=== PATIENT | male | born 1970 | race African-American/Black ===

== ENCOUNTER 2016-08-21 15:32 | Inpatient (IN) | payer OTHER ==
[2016-08-21 17:14] VITALS: BMI 24.4
--- NOTE | 2016-08-21 18:50 | HP ---
CIWA Score - CIWA Score Nausea/Vomitin-Mild Nausea/No Vomiting Muscle Tremors: 4-Moderate,w/Arms Extend Anxiety: 4-Mod. Anxious/Guarded Agitation: 4-Moderately Restless Paroxysmal Sweats: 1-Minimal Palms Moist Orientation: 3-Disoriented Date>2 days Tacttile Disturbances: 0-None Auditory Disturbances: 0-None Visual Disturbances: 0-None Headache: 1-Very Mild CIWA-Ar Total Score: 18 Admission ROS S - HPI Chief Complaint: withdrawal sx Allergies/Adverse Reactions: Allergies Allergy/AdvReac Type Severity Reaction Status Date / Time No Known Allergies Allergy Verified 07/01/16 16:48 History of Present Illness: 46 years old male with long history of alcohol nicotine dependence, denies medical issue has schizophrenia is admitted to detox Exam Limitations: No Limitations - Ebola screening Have you traveled outside of the country in the last 21 days: No (N) Have you had contact with anyone from an Ebola affected area: No Have you been sick,other than usual withdrawal symptoms: No Do you have a fever: No - Review of Systems Constitutional: Chills, Changes in sleep, Weight Stable EENT: reports: No Symptoms Reported Respiratory: reports: No Symptoms reported Cardiac: reports: No Symptoms Reported GI: reports: Nausea, Poor Fluid Intake, Abdominal cramping : reports: No Symptoms Reported Musculoskeletal: reports: No Symptoms Reported Integumentary: reports: No Symptoms Reported Neuro: reports: Tremors Endocrine: reports: No Symptoms Reported Hematology: reports: No Symptoms Reported Psychiatric: reports: Judgement Intact, Anxious, Depressed Other Systems: Reviewed and Negative Patient History - Patient Medical History Hx Anemia: No Hx Asthma: No Hx Chronic Obstructive Pulmonary Disease (COPD): No Hx Cancer: No Hx Cardiac Disorders: No Hx Congestive Heart Failure: No Hx Hypertension: No Hx Hypercholesterolemia: No Hx Pacemaker: No HX Cerebrovascular Accident: No Hx Seizures: No Hx Dementia: No Hx Diabetes: No Hx Gastrointestinal Disorders: No Hx Liver Disease: No Hx Genitourinary Disorders: No Hx Sexually Transmitted Disorders: No Hx Renal Disease (ESRD): No Hx Thyroid Disease: No Hx Human Immunodeficiency Virus (HIV): No Hx Hepatitis C: No Hx Depression: No Hx Suicide Attempt: Yes (CUT WRIST 2013) Hx Bipolar Disorder: No Hx Schizophrenia: Yes (schizoaffectiv edisorder) - Patient Surgical History Past Surgical History: No Hx Neurologic Surgery: No Hx Cataract Extraction: No Hx Cardiac Surgery: No Hx Lung Surgery: No Hx Breast Surgery: No Hx Breast Biopsy: No Hx Abdominal Surgery: No Hx Appendectomy: No Hx Cholecystectomy: No Hx Genitourinary Surgery: No Hx Orthopedic Surgery: No Anesthesia Reaction: No - PPD History Previous Implant?: Yes Documented Results: Negative w/proof Implanted On Prior R Admission?: Yes Date: 07/04/16 PPD to be Administered?: No - Smoking Cessation Smoking history: Current every day smoker Have you smoked in the past 12 months: Yes Aproximately how many cigarettes per day: 4 Hx Chewing Tobacco Use: No Initiated information on smoking cessation: Yes 'Breaking Loose' booklet given: 08/21/16 - Substance & Tx. History Hx Alcohol Use: Yes Hx Substance Use: No Substance Use Type: Alcohol, Marijuana Hx Substance Use Treatment: Yes - Substances Abused Alcohol Route: Oral Frequency: Daily Age of first use: 7 Date of Last Use: 08/21/16 Family Disease History - Family Disease History Family Disease History: Heart Disease: Grandparent (HTN), Other: Father ( ALCOHOLIC) Admission Physical Exam BHS - Vital Signs Vital Signs: Vital Signs - 24 hr 08/21/16 17:08 Temperature 98.0 F Pulse Rate 89 Respiratory 20 Rate Blood Pressure 137/84 - Physical General Appearance: Yes: Appropriately Dressed, Mild Distress, Thin, Tremorous, Irritable, Sweating, Anxious HEENTM: Yes: Hearing grossly Normal, Normal ENT Inspection, Normocephalic, Normal Voice Respiratory: Yes: Chest Non-Tender, Lungs Clear, Normal Breath Sounds, No Respiratory Distress, No Accessory Muscle Use Neck: Yes: Supple, Trachea in good position Breast: Yes: Breasts Symetrical Cardiology: Yes: Regular Rhythm, Regular Rate, S1, S2 Abdominal: Yes: Non Tender, Soft Genitourinary: Yes: Within Normal Limits Back: Yes: Normal Inspection Musculoskeletal: Yes: full range of Motion, Gait Steady Extremities: Yes: Normal Range of Motion, Non-Tender, Tremors Neurological: Yes: Alert, Motor Strength 5/5, Normal Response Integumentary: Yes: Warm Lymphatic: Yes: Within Normal Limits - Diagnostic (1) Alcohol dependence with uncomplicated withdrawal Current Visit: Yes Status: Acute (2) Schizoaffective disorder Current Visit: Yes Status: Suspected Qualifiers: Schizoaffective disorder type: bipolar Qualified Code(s): F25.0 - Schizoaffective disorder, bipolar type (3) Nicotine dependence Current Visit: Yes Status: Acute Qualifiers: Nicotine product type: cigarettes Substance use status: in withdrawal Qualified Code(s): F17.213 - Nicotine dependence, cigarettes, with withdrawal Cleared for Admission S - Detox or Rehab [facility] Level of Care: Medically Managed Detox Regimen/Protocol: Librium S Breath Alcohol Content Breath Alcohol Content: 0.024 Urine Drug Screen - Results Drug Screen Negative: No Urine Drug Screen Results: THC-Marijuana
[2016-08-21] MEDS ORDERED: MAG HYDROX/AL HYDROX/SIMETH 30 ML UNIT-DOSE CUP PO PRN (18:52)
[2016-08-21] MEDS ORDERED: IBUPROFEN 400 MG TABLET (FP) PO PRN (18:52)
[2016-08-21] MEDS ORDERED: LOPERAMIDE HCL 2 MG CAPSULE PO PRN (18:52)
[2016-08-21] MEDS ORDERED: chlordiazePOXIDE HCL 25 MG CAPSULE PO PRN (18:52)
[2016-08-21] MEDS ORDERED: ACETAMINOPHEN 325 MG TABLET (FP) PO PRN (18:52)
[2016-08-21] MEDS ORDERED: guaiFENesin/D-METHORPHAN HB 10 ML UNIT-DOSE CUPS PO PRN (18:52)
[2016-08-21] MEDS ORDERED: MAGNESIUM HYDROX 2400MG/30ML ORAL SUSPENSION 30 ML CUP PO PRN (18:52)
[2016-08-21] MEDS ORDERED: diphenhydrAMINE HCL 50 MG CAPSULE PO PRN (18:52)
[2016-08-21] MEDS ORDERED: P-EPHED 60MG/TRIPROLIDI 2.5MG TABLET PO PRN (18:52)
[2016-08-21] MEDS ORDERED: MENTHOL/PHENOL 1 EACH UD MM PRN (18:52)
[2016-08-21] MEDS ORDERED: MAGNESIUM CITRATE 300 ML BOTTLE PO PRN (18:52)
[2016-08-21] MEDS ORDERED: hydrOXYzine PAMOATE 50 MG CAPSULE (FP) PO PRN (18:57)
[2016-08-21] MEDS ORDERED: NICOTINE POLACRILEX 2 MG GUM BUC PRN (18:57)
[2016-08-21] MEDS ORDERED: chlordiazePOXIDE HCL 25 MG CAPSULE PO ONE (19:45)
[2016-08-21] MEDS: chlordiazePOXIDE HCL 25 MG CAPSULE PO SCH (22:15)
[2016-08-21] MEDS: THIAMINE HCL 100 MG TABLET (FP) PO SCH (22:15)
[2016-08-22 01:18] LABS: URINE APPEARANCE CLEAR; URINE BILIRUBIN NEGATIVE (NEGATIVE); URINE BLOOD NEGATIVE (NEGATIVE); URINE COLOR YELLOW; URINE GLUCOSE (UA) NEGATIVE (NEGATIVE); URINE KETONE TRACE (NEGATIVE); URINE LEUK ESTERASE NEGATIVE (NEGATIVE); URINE NITRITE NEGATIVE (NEGATIVE); URINE PROTEIN NEGATIVE (NEGATIVE); URINE UROBILINOGEN 4.0 E.U/dl E.U./dl (0.2-1.0)
[2016-08-22] MEDS: chlordiazePOXIDE HCL 25 MG CAPSULE PO SCH ×4 (06:03→22:43)
--- NOTE | 2016-08-22 09:31 | EKG ---
Test Reason : Blood Pressure : / mmHG Vent. Rate : 088 BPM Atrial Rate : 088 BPM P-R Int : 146 ms QRS Dur : 084 ms QT Int : 380 ms P-R-T Axes : 068 058 063 degrees QTc Int : 459 ms NORMAL SINUS RHYTHM NORMAL ECG NO PREVIOUS ECGS AVAILABLE Confirmed by WILLY SILVA MD ([id number]) on 08/22/2016 9:30:55 AM Referred By: Isra Nam Confirmed By:WILLY SILVA MD
[2016-08-22 10:30] LABS: MCH 33.2 pg (25.7-33.7); MCHC 33.6 g/dl (32.0-35.9); MEAN CELL VOLUME 98.9 fl (80-96); MEAN PLT VOLUME 9.9 fl (7.5-11.1); PLATELET COUNT 164 K/MM3 (134-434); RDW 13.9 % (11.9-15.9); WHITE BLOOD COUNT 5.8 K/mm3 (4.0-10.0)
[2016-08-22] MEDS: PRENATAL VITAMINS W/ FOLIC ACID TABLET (FP) PO SCH (10:35)
[2016-08-22] MEDS: NICOTINE 14 MG/24 HOURS TOPICAL PATCH TD SCH (10:36)
--- NOTE | 2016-08-22 10:55 | PN ---
S CIWA - CIWA Score Nausea/Vomitin Muscle Tremors: 4-Moderate,w/Arms Extend Anxiety: 4-Mod. Anxious/Guarded Agitation: 4-Moderately Restless Paroxysmal Sweats: 3 Orientation: 0-Oriented Tacttile Disturbances: 1-Very Mild Itch/Numbness Auditory Disturbances: 0-None Visual Disturbances: 0-None Headache: 1-Very Mild CIWA-Ar Total Score: 20 BHS Progress Note (SOAP) Subjective: nausea, sweats, interrupted sleep, anxiety, tremor Objective: 08/22/16 10:54 Vital Signs - 8 hr 08/22/16 08/22/16 08/22/16 03:30 06:00 10:22 Temperature 97.3 F L 97.7 F Pulse Rate 67 84 Respiratory 18 18 18 Rate Blood Pressure 131/78 124/76 Laboratory Tests 08/22/16 08/22/16 00:45 07:40 WBC 5.8 RBC 4.65 Hgb 15.4 Hct 46.0 MCV 98.9 H MCHC 33.6 RDW 13.9 Plt Count 164 MPV 9.9 Urine Color Yellow Urine Appearance Clear Urine pH 6.0 Ur Specific [place] 1.027 Urine Protein Negative Urine Glucose (UA) Negative Urine Ketones Trace H Urine Blood Negative Urine Nitrite Negative Urine Bilirubin Negative Urine Urobilinogen 4.0 e.u/dl Ur Leukocyte Esterase Negative labs still pending Assessment: 08/22/16 10:55 smita marsh Plan: cont detox
[2016-08-22 12:08] LABS: ALBUMIN 3.4 g/dl (3.4-5.0); ALK PHOS 48 U/L (45-117); ANION GAP 11 (8-16); BILIRUBIN,TOTAL 0.7 mg/dL (0.2-1.0); CALCIUM 8.8 mg/dL (8.5-10.1); CO2 29 mmol/L (21-32); CREATININE 0.8 mg/dL (0.7-1.3); GLUCOSE,RANDOM 73 mg/dL (74-106); SGOT/AST 20 U/L (15-37); SGPT/ALT 19 U/L (12-78)
--- NOTE | 2016-08-22 12:19 | CONSULT ---
[facility] Psychiatric Consult - Data Date of interview: 08/22/16 Admission source: [facility] Identifying data: Readmission to [facility] for this 46 y/o AA male seeking detox treatment on for alcohol and cocaine dependence.Patient is single, a father of four,domiciled,unemployed and suppoted on [employer] benefits. Substance Abuse History: - Smoking Cessation. Smoking history: Current every day smoker. Have you smoked in the past 12 months: Yes. Aproximately how many cigarettes per day: 4. Hx Chewing Tobacco Use: No. Initiated information on smoking cessation: Yes. 'Breaking Loose' booklet given: 08/21/16. - Substance & Tx. History. Hx Alcohol Use: Yes. Hx Substance Use: No. Substance Use Type : Alcohol, Marijuana. Hx Substance Use Treatment: Yes. - Substances Abused. * * Alcohol. Route: Oral. Frequency: Daily. Age of first use: 7. Date of Last Use: 08/21/16. Discussed with the patient in this interview.He confirmed this pattern of substance use. Medical History: Patient endorses good general health. Psychiatric History: Diagnosed with Schizoaffective Disorder (age 22).Patient is already known to this chief underwriter.No history of psychiatric hospitalizations.Mr Belle reports being on risperdal 2 mg po bid + depakote 500 mg po bid + buspar (dose not recalled).Followed at the [facility] in the [place].Chronic insomnia is reported by the patient.No history of suicide attempts. Physical/Sexual Abuse/Trauma History: Patient denies. Additional Comment: Urine Drug Screen Results: THC-Marijuana.Noted. Mental Status Exam - Mental Status Exam Alert and Oriented to: Time, Place, Person Cognitive Function: Good Patient Appearance: Well Groomed Mood: Hopeful, Euthymic Affect: Appropriate, Normal Range Patient Behavior: Fatigued, Talkative, Appropriate, Cooperative Speech Pattern: Clear, Appropriate Voice Loudness: Normal Thought Process: Goal Oriented Thought Disorder: Not Present Hallucinations: Denies Suicidal Ideation: Denies Homicidal Ideation: Denies Insight/Judgement: Poor Sleep: Poorly, Difficulty falling asleep Appetite: Good Muscle strength/Tone: Normal Gait/Station: Normal Psychiatric Findings - Problem List ([place] 1, 2,3) (1) Alcohol dependence with uncomplicated withdrawal Current Visit: Yes Status: Acute (2) Nicotine dependence Current Visit: Yes Status: Acute Qualifiers: Nicotine product type: cigarettes Substance use status: in withdrawal Qualified Code(s): F17.213 - Nicotine dependence, cigarettes, with withdrawal (3) Schizoaffective disorder Current Visit: Yes Status: Chronic Qualifiers: Schizoaffective disorder type: bipolar Qualified Code(s): F25.0 - Schizoaffective disorder, bipolar type Comment: Self-report. (4) Cannabis dependence, uncomplicated Current Visit: No Status: Acute - Initial Treatment Plan Initial Treatment Plan: Psychoeducation.Detoxification.Medications :risperdal 2 mg po bid + depakote 500 mg po bid + buspar 15 mg po bid (verified through review of pharmacy claims of 08/19/16 @ [facility]).Side effects/ benefits discussed with the patient.He agrees with this careplan.Valproic acid level :pending.Observation.No scripts necessary at discharge (refills already available at home).
[2016-08-22] MEDS: ZOLPIDEM TARTRATE 5 MG TABLET PO PRN (22:43)
[2016-08-22] MEDS: THIAMINE HCL 100 MG TABLET (FP) PO SCH (22:44)
[2016-08-22] MEDS: DIVALPROEX SODIUM 500 MG TABLET E.C. PO SCH (22:44)
[2016-08-22] MEDS: risperiDONE 2 MG TABLET PO SCH (22:44)
[2016-08-23] MEDS: chlordiazePOXIDE HCL 25 MG CAPSULE PO SCH ×3 (06:00→17:26)
[2016-08-23] MEDS: PRENATAL VITAMINS W/ FOLIC ACID TABLET (FP) PO SCH (10:57)
[2016-08-23] MEDS: DIVALPROEX SODIUM 500 MG TABLET E.C. PO SCH ×2 (10:58→22:03)
[2016-08-23] MEDS: risperiDONE 2 MG TABLET PO SCH ×2 (10:58→22:03)
[2016-08-23] MEDS: NICOTINE 14 MG/24 HOURS TOPICAL PATCH TD SCH (10:58)
--- NOTE | 2016-08-23 13:43 | PN ---
[facility] CIWA - CIWA Score Nausea/Vomitin-No Nausea/No Vomiting Muscle Tremors: 3 Anxiety: 4-Mod. Anxious/Guarded Agitation: 3 Paroxysmal Sweats: 3 Orientation: 0-Oriented Tacttile Disturbances: 0-None Auditory Disturbances: 0-None Visual Disturbances: 0-None Headache: 0-None Present CIWA-Ar Total Score: 13 S Progress Note (SOAP) Subjective: anxiety,tremors,sweating,interrupted sleep,restless. Objective: 08/23/16 13:42 Vital Signs - 8 hr 08/23/16 08/23/16 06:00 10:00 Temperature 98.1 F 98.6 F Pulse Rate 74 84 Respiratory 18 20 Rate Blood Pressure 110/68 116/77 Laboratory Last Values WBC 5.8 K/mm3 (4.0-10.0) 08/22/16 07:40 RBC 4.65 M/mm3 (4.00-5.60) 08/22/16 07:40 Hgb 15.4 GM/dL (11.7-16.9) 08/22/16 07:40 Hct 46.0 % (35.4-49) 08/22/16 07:40 MCV 98.9 fl (80-96) H 08/22/16 07:40 MCHC 33.6 g/dl (32.0-35.9) 08/22/16 07:40 RDW 13.9 % (11.9-15.9) 08/22/16 07:40 Plt Count 164 K/MM3 (134-434) 08/22/16 07:40 MPV 9.9 fl (7.5-11.1) 08/22/16 07:40 Sodium 142 mmol/L (136-145) 08/22/16 07:40 Potassium 3.6 mmol/L (3.5-5.1) 08/22/16 07:40 Chloride 102 mmol/L (98-107) 08/22/16 07:40 Carbon Dioxide 29 mmol/L (21-32) 08/22/16 07:40 Anion Gap 11 (8-16) 08/22/16 07:40 BUN 9 mg/dL (7-18) D 08/22/16 07:40 Creatinine 0.8 mg/dL (0.7-1.3) 08/22/16 07:40 Creat Clearance w eGFR > 60 (>60) 08/22/16 07:40 Random Glucose 73 mg/dL (74-106) L D 08/22/16 07:40 Calcium 8.8 mg/dL (8.5-10.1) 08/22/16 07:40 Total Bilirubin 0.7 mg/dL (0.2-1.0) D 08/22/16 07:40 AST 20 U/L (15-37) D 08/22/16 07:40 ALT 19 U/L (12-78) 08/22/16 07:40 Alkaline Phosphatase 48 U/L (45-117) 08/22/16 07:40 Total Protein 6.0 g/dl (6.4-8.2) L 08/22/16 07:40 Albumin 3.4 g/dl (3.4-5.0) 08/22/16 07:40 Urine Color Yellow 08/22/16 00:45 Urine Appearance Clear 08/22/16 00:45 Urine pH 6.0 (5.0-8.0) 08/22/16 00:45 Ur Specific [place] 1.027 (1.001-1.035) 08/22/16 00:45 Urine Protein Negative (NEGATIVE) 08/22/16 00:45 Urine Glucose (UA) Negative (NEGATIVE) 08/22/16 00:45 Urine Ketones Trace (NEGATIVE) H 08/22/16 00:45 Urine Blood Negative (NEGATIVE) 08/22/16 00:45 Urine Nitrite Negative (NEGATIVE) 08/22/16 00:45 Urine Bilirubin Negative (NEGATIVE) 08/22/16 00:45 Urine Urobilinogen 4.0 e.u/dl E.U./dl (0.2-1.0) 08/22/16 00:45 Ur Leukocyte Esterase Negative (NEGATIVE) 08/22/16 00:45 Valproic Acid 33.103 ug/ml (50-100) L 08/22/16 07:40 RPR Titer Nonreactive (NONREACTIVE) 08/22/16 07:40 labs noted Assessment: 08/23/16 13:43 withdrawal sx. Plan: continue detox
[2016-08-23] MEDS: THIAMINE HCL 100 MG TABLET (FP) PO SCH (22:03)
[2016-08-23] MEDS: ZOLPIDEM TARTRATE 5 MG TABLET PO PRN (22:03)
[2016-08-23] MEDS: chlordiazePOXIDE 5 MG CAPSULE PO SCH (22:03)
[2016-08-24] MEDS: chlordiazePOXIDE 5 MG CAPSULE PO SCH ×3 (05:08→17:27)
[2016-08-24] MEDS: risperiDONE 2 MG TABLET PO SCH ×2 (10:18→22:13)
[2016-08-24] MEDS: DIVALPROEX SODIUM 500 MG TABLET E.C. PO SCH ×2 (10:18→22:13)
[2016-08-24] MEDS: PRENATAL VITAMINS W/ FOLIC ACID TABLET (FP) PO SCH (10:18)
[2016-08-24] MEDS: NICOTINE 14 MG/24 HOURS TOPICAL PATCH TD SCH (10:18)
--- NOTE | 2016-08-24 10:24 | PN ---
BHS Progress Note (SOAP) Subjective: irritable agitation restless Objective: 08/24/16 10:23 Vital Signs Temperature 97.7 F 08/24/16 10:17 Pulse Rate 85 08/24/16 10:17 Respiratory Rate 18 08/24/16 10:17 Blood Pressure 134/79 08/24/16 10:17 O2 Sat by Pulse Oximetry (%) awake/alert ambulating no acute distress Assessment: 08/24/16 10:24 withdrawal sx Plan: continue detox increase fluids d/c in am
[2016-08-24] MEDS: chlordiazePOXIDE HCL 10 MG CAPSULE PO SCH (22:13)
[2016-08-24] MEDS: ZOLPIDEM TARTRATE 5 MG TABLET PO PRN (22:13)
[2016-08-24] MEDS: THIAMINE HCL 100 MG TABLET (FP) PO SCH (22:13)
[2016-08-25] MEDS: chlordiazePOXIDE HCL 10 MG CAPSULE PO SCH (05:32)
[2016-08-25 06:20] VITALS: BP 128/88; PULSE 76; TEMP 97.5
--- NOTE | 2016-08-25 08:45 | DS ---
[facility] Detox Discharge Summary Admission Date: 08/21/16 Discharge Date: 08/25/16 - History Present History: Alcohol Dependence, Cannabis Dependence - Physical Exam Results Vital Signs: Vital Signs Temperature 97.5 F L 08/25/16 06:20 Pulse Rate 76 08/25/16 06:20 Respiratory Rate 18 08/25/16 06:20 Blood Pressure 128/88 08/25/16 06:20 O2 Sat by Pulse Oximetry (%) - Treatment Hospital Course: Detox Protocol Followed, Detoxed Safely, Responded well, Discharged Condition Good, Rehab Referral Accepted - Medication Discharge Medications: Ambulatory Orders Benztropine Mesylate [Cogentin -] 1 mg PO BID #60 tablet 07/02/16 Buspirone HCl [Buspar -] 10 mg PO BID #60 tablet 07/02/16 Divalproex [Depakote -] 1,000 mg PO HS #60 tablet.ec 07/02/16 Divalproex [Depakote -] 500 mg PO DAILY #30 tablet.ec 07/02/16 Quetiapine Fumarate [Seroquel -] 200 mg PO HS #30 tablet 07/02/16 Risperidone [Risperdal -] 4 mg PO HS #30 tablet 07/02/16 - Diagnosis (1) Alcohol dependence with uncomplicated withdrawal Current Visit: Yes Status: Chronic (2) Nicotine dependence Current Visit: Yes Status: Chronic Qualifiers: Nicotine product type: cigarettes Substance use status: in withdrawal Qualified Code(s): F17.213 - Nicotine dependence, cigarettes, with withdrawal (3) Schizoaffective disorder Current Visit: Yes Status: Chronic Qualifiers: Schizoaffective disorder type: bipolar Qualified Code(s): F25.0 - Schizoaffective disorder, bipolar type (4) Cannabis dependence, uncomplicated Current Visit: Yes Status: Chronic - AMA Did Patient Leave Against Medical Advice: No
== END 2016-08-25 08:28 | disposition home or self-care (01) | DRG 774 ==
LOC: YASAS 15:32 → Y6N 19:40
PROVIDERS: ADMIT Internal Medicine; ATTEND Internal Medicine
PROC: HZ2ZZZZ Detoxification Services for Substance Abuse Treatment (ICD-10-PCS; principal; 2016-08-25)
DX: F10.230 Alcohol dependence with withdrawal, uncomplicated (principal); F14.20 Cocaine dependence, uncomplicated; F17.213 Nicotine dependence, cigarettes, with withdrawal; F25.0 Schizoaffective disorder, bipolar type; Z59.0 Homelessness
CPT/HCPCS: 36415; 80053; 80164; 81003; 85027; 86593; 93005; 93010

== ENCOUNTER 2018-03-30 11:08 | Inpatient (IN) | payer OTHER ==
[2018-03-31 00:02] VITALS: BMI 21.1
--- NOTE | 2018-03-31 01:57 | HP ---
COWS - Scale Resting Pulse: 1= [place] 81-100 Sweatin= No chills or Flushing Restless Observation: 3= Extraneous Movement Pupil Size: 0= Normal to Room Light Bone or Joint Aches: 0= None Runny Nose/ Eye Tearin= None GI Upset > 30mins: 0= None Tremor Observation: 2= Slight Tremor Visible Yawning Observation: 0= None Anxiety or Irritability: 2=Irritable/Anxious Goose Flesh Skin: 0=Smooth Skin COWS Score: 8 CIWA Score - CIWA Score Nausea/Vomitin-No Nausea/No Vomiting Muscle Tremors: 3 Anxiety: 4-Mod. Anxious/Guarded Agitation: 4-Moderately Restless Paroxysmal Sweats: No Perspiration Orientation: 2-Disoriented Date<2 days Tacttile Disturbances: 0-None Auditory Disturbances: 0-None Visual Disturbances: 0-None Headache: 0-None Present CIWA-Ar Total Score: 13 Admission ROS S - HPI Chief Complaint: SEEKING DETOX FROM ALCOHOL. C/O WITHDRAWAL SX'S Allergies/Adverse Reactions: Allergies Allergy/AdvReac Type Severity Reaction Status Date / Time No Known Allergies Allergy Verified 08/21/16 19:06 History of Present Illness: 47 Y.OMJOSE WITH ALCOHOLISM AND CANNABIS DEPENDENCE HERE FOR DETOX. HIS URINE IS + OPI AND ROSLYN BUT DENIES USE. STATES ONLY USE HEROIN THESE PAST 4 DAYS. ATTEMPTED SMOKING IT. TOOK A COUPLE OF PULLS. DENIES COCAINE USE. REFERRED BY FAMILY. KNOWN TO THIS [id number] LAST HERE 07/2016.REPORTS LONGEST CLEAN TIME 2 YEARS. C/O WITHDRAWAL SX'S DENIES SOB, C.P., SEIZURE D/O AND DRUG OVERDOSE. REPORTS AVH WHEN HE IS OFF HIS PSYCH MEDS. ALSO REPORTS HX/O SI LAST BEING 5 MONTHS AGO SLASHIN HIS WRIST. HE PRESENTLY DENIES SUCH THOUGHTS AT THIS TIME TO INCLUDE HI PMHX: DENIES PSYCH: SCHIZOPHREMIA AND BIPOLAR Exam Limitations: No Limitations - Ebola screening Have you traveled outside of the country in the last 21 days: No Have you had contact with anyone from an Ebola affected area: No Have you been sick,other than usual withdrawal symptoms: No Do you have a fever: No - Review of Systems Constitutional: Changes in sleep EENT: reports: Dental Problems (MISSING TEETH), Other (DRY MUCUC MEMEBRAINES) Respiratory: reports: No Symptoms reported Cardiac: reports: No Symptoms Reported GI: reports: Other (HERNIA) : reports: No Symptoms Reported Musculoskeletal: reports: No Symptoms Reported Integumentary: reports: No Symptoms Reported Neuro: reports: No Symptoms reported Endocrine: reports: No Symptoms Reported Hematology: reports: No Symptoms Reported Psychiatric: reports: Anxious, Depressed Other Systems: Reviewed and Negative Patient History - Patient Medical History Hx Anemia: No Hx Asthma: No Hx Chronic Obstructive Pulmonary Disease (COPD): No Hx Cancer: No Hx Cardiac Disorders: No Hx Congestive Heart Failure: No Hx Hypertension: No Hx Hypercholesterolemia: No Hx Pacemaker: No HX Cerebrovascular Accident: No Hx Seizures: No Hx Dementia: No Hx Diabetes: No Hx Gastrointestinal Disorders: No Hx Liver Disease: No Hx Genitourinary Disorders: No Hx Sexually Transmitted Disorders: No Hx Renal Disease (ESRD): No Hx Thyroid Disease: No Hx Human Immunodeficiency Virus (HIV): No Hx Hepatitis C: No Hx Depression: No Hx Suicide Attempt: Yes (CUT WRIST 2017) Hx Bipolar Disorder: No Hx Schizophrenia: Yes (schizoaffectiv edisorder) Other Medical History: DENIES - Patient Surgical History Past Surgical History: No Hx Neurologic Surgery: No Hx Cataract Extraction: No Hx Cardiac Surgery: No Hx Lung Surgery: No Hx Breast Surgery: No Hx Breast Biopsy: No Hx Abdominal Surgery: No Hx Appendectomy: No Hx Cholecystectomy: No Hx Genitourinary Surgery: No Hx Section: No Hx Orthopedic Surgery: No Anesthesia Reaction: No - PPD History Previous Implant?: Yes Documented Results: Negative w/proof Implanted On Prior [facility] Admission?: Yes Date: 07/04/16 Results: 0MM PPD to be Administered?: Yes - Smoking Cessation Smoking history: Current every day smoker Have you smoked in the past 12 months: Yes Aproximately how many cigarettes per day: 4 Cigars Per Day: 0 Hx Chewing Tobacco Use: No Initiated information on smoking cessation: Yes 'Breaking Loose' booklet given: 03/31/18 - Substance & Tx. History Hx Alcohol Use: Yes Hx Substance Use: Yes Substance Use Type: Alcohol Hx Substance Use Treatment: Yes ([facility]) - Substances Abused HEROIN Route: Smoking Frequency: Daily Amount used: 1 -2 PULLS Age of first use: 47 (4 DAYS ONLY) Date of Last Use: 03/30/18 HECTOR/WINE Route: Oral Frequency: 3-6 times per week Amount used: 1/PINT/1 NIP Age of first use: 7 (POOR HISTORIAN) Date of Last Use: 03/30/18 Family Disease History - Family Disease History Family Disease History: Heart Disease: Grandparent (HTN), Other: Father ( ALCOHOLIC) Admission Physical Exam [facility] - Vital Signs Vital Signs: Vital Signs - 24 hr 03/31/18 00:00 Temperature 98.8 F Pulse Rate 92 H Respiratory 18 Rate Blood Pressure 115/71 - Physical General Appearance: Yes: Appropriately Dressed, Anxious HEENTM: Yes: EOMI, Normocephalic, Normal Voice, GRIS, Pharynx Normal, Other ( MISSING TEETH) Respiratory: Yes: Chest Non-Tender, Lungs Clear, Normal Breath Sounds, No Respiratory Distress, No Accessory Muscle Use Neck: Yes: No masses,lesions,Nodules, Supple, Trachea in good position Breast: Yes: Breast Exam Deferred Cardiology: Yes: Regular Rhythm, S1, S2, Tachycardia Abdominal: Yes: Normal Bowel Sounds, Non Tender, Soft, Protuberent Genitourinary: Yes: Other (NO C/O) Back: Yes: Normal Inspection Musculoskeletal: Yes: full range of Motion, Gait Steady Extremities: Yes: Normal Range of Motion, Non-Tender, Tremors (FELT) Neurological: Yes: Alert, Motor Strength 5/5, Other (POOR HISTORIAN) Integumentary: Yes: Dry, Warm Lymphatic: Yes: Within Normal Limits - Diagnostic (1) Alcohol dependence with uncomplicated withdrawal Current Visit: Yes Status: Chronic (2) Cannabis dependence, uncomplicated Current Visit: Yes Status: Chronic (3) Nicotine dependence Current Visit: Yes Status: Chronic Qualifiers: Nicotine product type: cigarettes Substance use status: in withdrawal Qualified Code(s): F17.213 - Nicotine dependence, cigarettes, with withdrawal (4) Schizoaffective disorder Current Visit: Yes Status: Chronic Qualifiers: Schizoaffective disorder type: bipolar Qualified Code(s): F25.0 - Schizoaffective disorder, bipolar type Comment: Self-report. Cleared for Admission [facility] - Detox or Rehab [facility] Level of Care: Medically Managed Detox Regimen/Protocol: Librium Claeared for Rehab Admission: No [facility] Breath Alcohol Content Breath Alcohol Content: 0 Urine Drug Screen - Results Drug Screen Negative: No Urine Drug Screen Results: THC-Marijuana, ROSLYN-Cocaine
[2018-03-31] MEDS ORDERED: MAGNESIUM HYDROX 2400MG/30ML ORAL SUSPENSION 30 ML CUP PO PRN (02:12)
[2018-03-31] MEDS ORDERED: guaiFENesin/D-METHORPHAN HB 10 ML UNIT-DOSE CUPS PO PRN (02:12)
[2018-03-31] MEDS ORDERED: chlordiazePOXIDE HCL 25 MG CAPSULE PO PRN (02:12)
[2018-03-31] MEDS ORDERED: ACETAMINOPHEN 325 MG TABLET (FP) PO PRN (02:12)
[2018-03-31] MEDS ORDERED: MENTHOL/PHENOL 1 EACH UD MM PRN (02:12)
[2018-03-31] MEDS ORDERED: P-EPHED 60MG/TRIPROLIDI 2.5MG TABLET PO PRN (02:12)
[2018-03-31] MEDS ORDERED: MAG HYDROX/AL HYDROX/SIMETH 30 ML UNIT-DOSE CUP PO PRN (02:12)
[2018-03-31] MEDS ORDERED: hydrOXYzine PAMOATE 50 MG CAPSULE (FP) PO PRN (02:12)
[2018-03-31] MEDS ORDERED: LOPERAMIDE HCL 2 MG CAPSULE PO PRN (02:12)
[2018-03-31] MEDS ORDERED: NICOTINE POLACRILEX 2 MG GUM BUC PRN (02:12)
[2018-03-31] MEDS ORDERED: MAGNESIUM CITRATE 300 ML BOTTLE PO PRN (02:12)
[2018-03-31] MEDS ORDERED: IBUPROFEN 400 MG TABLET (FP) PO PRN (02:12)
[2018-03-31] MEDS: chlordiazePOXIDE HCL 25 MG CAPSULE PO SCH ×4 (07:37→22:12)
[2018-03-31] MEDS: NICOTINE 14 MG/24 HOURS TOPICAL PATCH TD SCH (10:20)
[2018-03-31] MEDS: PRENATAL VITAMINS W/ FOLIC ACID TABLET (FP) PO SCH (10:20)
[2018-03-31 10:55] LABS: CHLORIDE 104 mmol/L (98-107); POTASSIUM 4.1 mmol/L (3.5-5.1); SODIUM 142 mmol/L (136-145)
[2018-03-31 11:09] LABS: ALBUMIN 3.1 g/dl (3.4-5.0); ALK PHOS 44 U/L (45-117); ANION GAP 7 MMOL/L (8-16); BILIRUBIN,TOTAL 0.7 mg/dL (0.2-1.0); BLOOD UREA NITROGEN 17 mg/dL (7-18); CALCIUM 8.5 mg/dL (8.5-10.1); CO2 31 mmol/L (21-32); CREATININE 0.8 mg/dL (0.7-1.3); GLUCOSE,RANDOM 83 mg/dL (74-106); SGOT/AST 31 U/L (15-37); SGPT/ALT 35 U/L (12-78); TOT PROT 5.9 g/dl (6.4-8.2)
[2018-03-31 11:42] LABS: HEMATOCRIT 40.8 % (35.4-49); HEMOGLOBIN 13.5 GM/dL (11.7-16.9); MCH 31.2 pg (25.7-33.7); MCHC 33.1 g/dl (32.0-35.9); MEAN PLT VOLUME 9.5 fl (7.5-11.1); PLATELET COUNT 249 K/MM3 (134-434); RBC 4.34 M/mm3 (4.00-5.60); RDW 13.6 % (11.9-15.9); WHITE BLOOD COUNT 5.2 K/mm3 (4.0-10.0)
[2018-03-31] MEDS ORDERED: PNEUMOC 13-VAL CONJ-DIP CRM/PF 0.5 ML DISP.SYRIN IM ONE (12:00)
[2018-03-31] MEDS ORDERED: PNEUMOCOCCAL 23 VACCINE 0.5 ML VIAL IM ONE (12:00)
--- NOTE | 2018-03-31 12:12 | PN ---
S Progress Note Note: ADMITTED EARLIER TODAY. PT APPEARS SLEEPY AND TIRED WHEN SEEN IN BED AND VERBALIZED TIREDNESS AND SLEEPY. CONTINUE DETOX/MONITOR PT. Vital Signs 03/31/18 03/31/18 06:17 10:13 Temperature 97.8 F 98.6 F Pulse Rate 66 93 H Respiratory 20 20 Rate Blood Pressure 93/56 112/71 Laboratory Tests 03/31/18 03/31/18 06:00 06:00 WBC 5.2 RBC 4.34 Hgb 13.5 Hct 40.8 MCV 94.0 MCH 31.2 MCHC 33.1 RDW 13.6 Plt Count 249 D MPV 9.5 Sodium 142 Potassium 4.1 Chloride 104 Carbon Dioxide 31 Anion Gap 7 L BUN 17 Creatinine 0.8 Creat Clearance w eGFR > 60 Random Glucose 83 Calcium 8.5 Total Bilirubin 0.7 AST 31 D ALT 35 D Alkaline Phosphatase 44 L Total Protein 5.9 L Albumin 3.1 L
--- NOTE | 2018-03-31 13:47 | EKG ---
Test Reason : Blood Pressure : / mmHG Vent. Rate : 066 BPM Atrial Rate : 066 BPM P-R Int : 140 ms QRS Dur : 088 ms QT Int : 412 ms P-R-T Axes : -01 078 068 degrees QTc Int : 431 ms NORMAL SINUS RHYTHM WITH SINUS ARRHYTHMIA NORMAL ECG WHEN COMPARED WITH ECG OF 21-AUG-2016 20:39, NO SIGNIFICANT CHANGE WAS FOUND Confirmed by ROSALINO PABLO MD ([id number]) on 03/31/2018 1:46:59 PM Referred By: Thalia Meyer Confirmed By:ROSALINO PABLO MD
--- NOTE | 2018-03-31 17:13 | CONSULT ---
[facility] Psychiatric Consult - Data Date of interview: 03/31/18 Admission source: [facility] Identifying data: Patient is a 47 year old single male, unemployed, homeless, and supported by [facility]. This is one of multiple admissions for patient. Pt. admitted to for alcohol, cocaine, and marijuana dependence. Substance Abuse History: - Smoking Cessation. Smoking history: Current every day smoker. Have you smoked in the past 12 months: Yes. Aproximately how many cigarettes per day: 4. Cigars Per Day: 0. Hx Chewing Tobacco Use: No. Initiated information on smoking cessation: Yes. 'Breaking Loose' booklet given : 03/31/18. - Substance & Tx. History. Hx Alcohol Use: Yes. Hx Substance Use : Yes. Substance Use Type: Alcohol. Hx Substance Use Treatment: Yes ([facility]). - Substances Abused. HEROIN. Route: Smoking. Frequency: Daily. Amount used: 1 -2 PULLS. Age of first use: 47 (4 DAYS ONLY). Date of Last Use: . HECTOR/WINE. Route: Oral. Frequency: 3-6 times per week. Amount used : 1/PINT/1 NIP. Age of first use: 7 (POOR HISTORIAN). Date of Last Use: Medical History: denies. Psychiatric History: Patient presented as guarded, irritable, and with blunted affect. Pt. irritable when asked questions concerning his psychiatric history. Pt. unable to provide a clear psychiatric history. He stated he went to [facility] last month to receive his psychtropic medication and to [facility] for detox. Pt. denies current outpatient psychiatric services. Patient informed that per pharmacy claims a prescription of zyprexa 15mg qhs + Depakote 500mg BID + Trazodone 50mg was sent to his pharmacy on 03/22/18. Pt. responded by stating , "If you know why would you tell me. I don't take zyprexa because it doesnt help me sleep and i don't take trazodone." Patient educated on the benefits and side effects of the medications mentioned above Pt. then asked if he would accept depakote. He responded by stating, " NO I DONT WANT MY MEDICATIONS." Pt. becoming increasingly frustrated but able to de escalate on his own. Pt. remained irritable and is refusing to speak about his medications. Pt. denies current urges or thoughts to hurt himself or others. Pt. refusing to continue conversation. Physical/Sexual Abuse/Trauma History: denies. Mental Status Exam - Mental Status Exam Alert and Oriented to: Time, Place, Person Cognitive Function: Good Patient Appearance: Well Groomed Mood: Suspicious, Irritable Affect: Blunted Patient Behavior: Uncooperative, Agitated Speech Pattern: Clear Voice Loudness: Mildly Loud Thought Process: Goal Oriented, Thought Blocking Thought Disorder: Present Hallucinations: Denies Suicidal Ideation: Denies Homicidal Ideation: Denies Insight/Judgement: Poor Sleep: Poorly Appetite: Fair Muscle strength/Tone: Normal Gait/Station: Normal Psychiatric Findings - Problem List ([place] 1, 2,3) (1) Alcohol dependence with uncomplicated withdrawal Current Visit: Yes Status: Acute (2) Cannabis dependence, uncomplicated Current Visit: Yes Status: Chronic (3) Nicotine dependence Current Visit: Yes Status: Chronic Qualifiers: Nicotine product type: cigarettes Substance use status: in withdrawal Qualified Code(s): F17.213 - Nicotine dependence, cigarettes, with withdrawal (4) Schizoaffective disorder Current Visit: Yes Status: Chronic Qualifiers: Schizoaffective disorder type: bipolar Qualified Code(s): F25.0 - Schizoaffective disorder, bipolar type Comment: Self-report. - Initial Treatment Plan Initial Treatment Plan: Psychoeducation provided. Detoxification in progress. Observation. Pt irritable and refusing to resume his current medications. Pt. refusing to continue conversation with script writer.
[2018-03-31] MEDS ORDERED: MELATONIN 5 MG TABLETS PO PRN (22:00)
[2018-03-31] MEDS ORDERED: THIAMINE HCL 100 MG TABLET (FP) PO SCH (22:00)
[2018-04-01 00:54] LABS: URINE APPEARANCE CLEAR; URINE BILIRUBIN NEGATIVE (<2.0 mg/dL); URINE COLOR YELLOW; URINE GLUCOSE (UA) NEGATIVE (NEGATIVE); URINE KETONE NEGATIVE (NEGATIVE); URINE LEUK ESTERASE NEGATIVE (NEGATIVE); URINE NITRITE NEGATIVE (NEGATIVE); URINE PROTEIN NEGATIVE (NEGATIVE); URINE UROBILINOGEN 4.0 E.U/dl mg/dL (0.2-1.0)
[2018-04-01] MEDS: chlordiazePOXIDE HCL 25 MG CAPSULE PO SCH ×2 (05:46→11:35)
[2018-04-01 09:39] VITALS: BP 112/80; PULSE 82; TEMP 97
[2018-04-01] MEDS: PRENATAL VITAMINS W/ FOLIC ACID TABLET (FP) PO SCH (11:34)
[2018-04-01] MEDS: NICOTINE 14 MG/24 HOURS TOPICAL PATCH TD SCH (11:34)
--- NOTE | 2018-04-01 13:15 | PN ---
[facility] CIWA - CIWA Score Nausea/Vomitin-No Nausea/No Vomiting Muscle Tremors: 4-Moderate,w/Arms Extend Anxiety: 4-Mod. Anxious/Guarded Agitation: 4-Moderately Restless Paroxysmal Sweats: 1-Minimal Palms Moist Orientation: 0-Oriented Tacttile Disturbances: 0-None Auditory Disturbances: 0-None Visual Disturbances: 0-None Headache: 0-None Present CIWA-Ar Total Score: 13 S COWS - Scale Resting Pulse: 1= AR 81-100 Sweatin= Chills/Flushing Restless Observation: 3= Extraneous Movement Pupil Size: 0= Normal to Room Light Bone or Joint Aches: 1= Mild Discomfort Runny Nose/ Eye Tearin= None GI Upset > 30mins: 0= None Tremor Observation of Outstretched Hands: 1= Tremor [place], Not Seen Yawning Observation: 1= 1-2x During Session Anxiety or Irritability: 2=Irritable/Anxious Goose Flesh Skin: 0=Smooth Skin COWS Score: 10 [facility] Progress Note (SOAP) Subjective: ANXIETY,SWEATS/CHILLS,FATIGUE. Objective: 04/01/18 13:14 Vital Signs 04/01/18 04/01/18 06:21 09:38 Temperature 97.3 F L 97.0 F L Pulse Rate 74 82 Respiratory 18 20 Rate Blood Pressure 108/67 112/80 Laboratory Tests 03/31/18 03/31/18 03/31/18 06:00 06:00 06:00 WBC 5.2 RBC 4.34 Hgb 13.5 Hct 40.8 MCV 94.0 MCH 31.2 MCHC 33.1 RDW 13.6 Plt Count 249 D MPV 9.5 Sodium 142 Potassium 4.1 Chloride 104 Carbon Dioxide 31 Anion Gap 7 L BUN 17 Creatinine 0.8 Creat Clearance w eGFR > 60 Random Glucose 83 Calcium 8.5 Total Bilirubin 0.7 AST 31 D ALT 35 D Alkaline Phosphatase 44 L Total Protein 5.9 L Albumin 3.1 L Urine Color Urine Appearance Urine pH Ur Specific [place] Urine Protein Urine Glucose (UA) Urine Ketones Urine Blood Urine Nitrite Urine Bilirubin Urine Urobilinogen Ur Leukocyte Esterase RPR Titer Nonreactive 03/31/18 23:15 WBC RBC Hgb Hct MCV MCH MCHC RDW Plt Count MPV Sodium Potassium Chloride Carbon Dioxide Anion Gap BUN Creatinine Creat Clearance w eGFR Random Glucose Calcium Total Bilirubin AST ALT Alkaline Phosphatase Total Protein Albumin Urine Color Yellow Urine Appearance Clear Urine pH 6.0 Ur Specific [place] 1.021 Urine Protein Negative Urine Glucose (UA) Negative Urine Ketones Negative Urine Blood Negative Urine Nitrite Negative Urine Bilirubin Negative Urine Urobilinogen 4.0 e.u/dl Ur Leukocyte Esterase Negative RPR Titer Assessment: 04/01/18 13:15 WITHDRAWAL SX Plan: CONTINUE DETOX
--- NOTE | 2018-04-01 13:52 | DS ---
[facility] Detox Discharge Summary Admission Date: 03/30/18 Discharge Date: 04/01/18 - History Present History: Alcohol Dependence, Cannabis Dependence Additional Comments: PT DECLINED TO CONTINUE WITH DETOX. ALERT O X 3. NAD. - Physical Exam Results Vital Signs: Vital Signs Temperature 97.0 F L 04/01/18 09:38 Pulse Rate 82 04/01/18 09:38 Respiratory Rate 20 04/01/18 09:38 Blood Pressure 112/80 04/01/18 09:38 O2 Sat by Pulse Oximetry (%) Pertinent Admission Physical Exam Findings: WITHDRAWAL SX Laboratory Tests 03/31/18 03/31/18 03/31/18 06:00 06:00 06:00 WBC 5.2 RBC 4.34 Hgb 13.5 Hct 40.8 MCV 94.0 MCH 31.2 MCHC 33.1 RDW 13.6 Plt Count 249 D MPV 9.5 Sodium 142 Potassium 4.1 Chloride 104 Carbon Dioxide 31 Anion Gap 7 L BUN 17 Creatinine 0.8 Creat Clearance w eGFR > 60 Random Glucose 83 Calcium 8.5 Total Bilirubin 0.7 AST 31 D ALT 35 D Alkaline Phosphatase 44 L Total Protein 5.9 L Albumin 3.1 L Urine Color Urine Appearance Urine pH Ur Specific [place] Urine Protein Urine Glucose (UA) Urine Ketones Urine Blood Urine Nitrite Urine Bilirubin Urine Urobilinogen Ur Leukocyte Esterase RPR Titer Nonreactive 03/31/18 23:15 WBC RBC Hgb Hct MCV MCH MCHC RDW Plt Count MPV Sodium Potassium Chloride Carbon Dioxide Anion Gap BUN Creatinine Creat Clearance w eGFR Random Glucose Calcium Total Bilirubin AST ALT Alkaline Phosphatase Total Protein Albumin Urine Color Yellow Urine Appearance Clear Urine pH 6.0 Ur Specific [place] 1.021 Urine Protein Negative Urine Glucose (UA) Negative Urine Ketones Negative Urine Blood Negative Urine Nitrite Negative Urine Bilirubin Negative Urine Urobilinogen 4.0 e.u/dl Ur Leukocyte Esterase Negative RPR Titer - Treatment Hospital Course: Discharged Condition Good - Medication Discharge Medications: Ambulatory Orders Benztropine Mesylate [Cogentin -] 1 mg PO BID #60 tablet 07/02/16 Buspirone HCl [Buspar -] 10 mg PO BID #60 tablet 07/02/16 Divalproex [Depakote -] 1,000 mg PO HS #60 tablet.ec 07/02/16 Divalproex [Depakote -] 500 mg PO DAILY #30 tablet.ec 07/02/16 Quetiapine Fumarate [Seroquel -] 200 mg PO HS #30 tablet 07/02/16 Risperidone [Risperdal -] 4 mg PO HS #30 tablet 07/02/16 - Diagnosis (1) Alcohol dependence with uncomplicated withdrawal Status: Acute (2) Cannabis dependence, uncomplicated Status: Acute (3) Nicotine dependence Status: Acute Qualifiers: Nicotine product type: cigarettes Substance use status: in withdrawal Qualified Code(s): F17.213 - Nicotine dependence, cigarettes, with withdrawal - AMA Did Patient Leave Against Medical Advice: Yes (AMA)
[2018-04-02] MEDS ORDERED: chlordiazePOXIDE 5 MG CAPSULE PO SCH (05:00)
[2018-04-03] MEDS ORDERED: chlordiazePOXIDE HCL 10 MG CAPSULE PO SCH (05:00)
== END 2018-04-01 13:25 | disposition left against medical advice (07) | DRG 770 ==
LOC: YASAS 11:08 → Y3N 23:29
PROC: HZ2ZZZZ Detoxification Services for Substance Abuse Treatment (ICD-10-PCS; principal; 2018-03-30)
DX: F10.230 Alcohol dependence with withdrawal, uncomplicated (principal); F12.20 Cannabis dependence, uncomplicated; F17.213 Nicotine dependence, cigarettes, with withdrawal; F25.0 Schizoaffective disorder, bipolar type
CPT/HCPCS: 36415; 80053; 81003; 85027; 86593; 93005; 93010